=== PATIENT | male | born 1995 | race Two or more races ===

== ENCOUNTER 2021-08-02 12:15 | Emergency (ER) | payer SELFPAY ==
[~2021-08-02] VITALS: Ht 167.6 cm; Wt 78.9 kg
--- NOTE | 2021-08-02 13:09 | NUR ---
BIBS C/O RLE, laceration - cut by a tile during work. AMBULATORY, PLACED ON CHAIR.
--- NOTE | 2021-08-02 14:30 | NUR ---
SUTURE DONE BY DR SWANSON
[2021-08-02] MEDS ORDERED: TDAP [DIPH/PERTUSSIS/TET] 0.5 ML VIAL IM ONE (14:58)
[2021-08-02] MEDS: TDAP [DIPH/PERTUSSIS/TET] 0.5 ML VIAL IM ONE (15:00)
[2021-08-02 15:06] VITALS: BP 110/72
--- NOTE | 2021-08-02 15:06 | NUR ---
Patient discharged to home in stable condition. Written and verbal after care instructions given. Patient verbalizes understanding of instruction.
== END 2021-08-02 15:07 | disposition home or self-care (01) ==
LOC: ER 12:15
DX: S81.811A Laceration without foreign body, right lower leg, initial encounter (principal); W26.8XXA Contact with other sharp object(s), not elsewhere classified, initial encounter; Y93.89 Activity, other specified; Y92.89 Other specified places as the place of occurrence of the external cause; Y99.8 Other external cause status
CPT/HCPCS: 12002; 73590; 90471; 90715; 99283; A6403